=== PATIENT | female | born 1930 ===

== ENCOUNTER 2016-12-20 16:11 | Emergency (ER) | payer MEDICARE, MEDICAID ==
--- NOTE | 2016-12-20 17:04 | C.PDOC ---
History Of Present Illness 86 year old female was brought to the ED by EMS after falling just prior to arrival. Patient states she was attempting to push open a heavy door but was unable to and fell. Patient's current medications are unknown. She notes pain in her left hip, right knee, shoulder, and hand. Patient denies LOC, neck pain, dizziness, lightheadedness, or changes in sensation. - HPI Time Seen by Provider: 12/20/16 16:44 Chief Complaint (Nursing): Trauma History Per: Patient, EMS, Incident Response Lead History/Exam Limitations: no limitations Onset/Duration Of Symptoms: Mins Injury Occurred (Timing): Just Before Arrival Location Of Injury: Right: Arm, Hand, Knee, Left: Hip Recent travel outside of the [place] States: No Additional History Per: Family - Fall Fall:Prior To Injury: Other (unable to push heavy door and fell ) Past Medical History Reviewed: Historical Data, Nursing Documentation, Vital Signs Vital Signs: Last Vital Signs Temp 97.1 F L 12/20/16 19:16 Pulse 66 12/20/16 19:16 Resp 18 12/20/16 19:16 BP 120/78 12/20/16 19:16 Pulse Ox 97 12/20/16 20:55 Family History: States: Unknown Family Hx - Social History Hx Alcohol Use: No Hx Substance Use: No - Immunization History Hx Tetanus Toxoid Vaccination: No Hx Influenza Vaccination: No Hx Pneumococcal Vaccination: No Review Of Systems Constitutional: Negative for: Fever Eyes: Negative for: Vision Change Cardiovascular: Negative for: Chest Pain Respiratory: Negative for: Shortness of Breath Gastrointestinal: Negative for: Vomiting Musculoskeletal: Positive for: Shoulder Pain (right shoulder pain ), Hand Pain ( right hand pain ), Leg Pain (right knee pain), Other (left hip pain). Negative for: Neck Pain Neurological: Negative for: Weakness, Numbness, Dizziness Physical Exam - Physical Exam Appears: Non-toxic, No Acute Distress Skin: Warm, Dry Head: Tenderness (posterior scalp ), Swelling (posterior scalp ), Other ( ecchymosis and superficial abrasion to forehead ) Eye(s): bilateral: Normal Inspection, PERRL, EOMI Ear(s): Bilateral: Normal Nose: Normal Oral Mucosa: Moist Neck: Normal, Normal ROM, No Midline Cervical Tenderness, No Paracervical Tenderness, Supple Chest: Symmetrical, No Deformity Cardiovascular: Rhythm Regular Respiratory: Normal Breath Sounds, No Rales, No Rhonchi, No Wheezing Gastrointestinal/Abdominal: Normal Exam, Soft, No Tenderness Extremity: No Normal ROM, Tenderness (Tenderness of the right hand, right shoulder, right knee, and left hip and posterior buttock region ), No Calf Tenderness, Capillary Refill (good capillary refill, less than 2 seconds ), Swelling (swelling of the right hand, right shoulder, and right knee ), Other ( Ecchymosis of right hand. Superficial abrasion to right shoulder and right knee ) Pulses: Left Radial: Normal, Right Radial: Normal, Left Dorsalis Pedis: Normal, Right Dorsalis Pedis: Normal Neurological/Psych: Oriented x3, Normal Speech, Normal Cognition, Normal Cranial Nerves ED Course And Treatment O2 Sat by Pulse Oximetry: 97 (room air ) - Other Rad Right Shoulder X-ray X-Ray: Viewed By Me, Read By Radiologist Interpretation: COMPARISON: No prior. FINDINGS: BONES: Limited evaluation. Two views are provided in external rotation and no internal rotation view of the shoulder is provided. No evidence of fracture. JOINTS: Mild acromioclavicular degenerative arthritis. Glenohumeral articulation appears intact. SOFT TISSUES: Normal. OTHER FINDINGS: None. IMPRESSION: No acute fracture. Limited examination. Right knee X-ray X-Ray: Viewed By Me, Read By Radiologist Interpretation: COMPARISON: None. FINDINGS: BONES: Normal. No fracture. JOINTS: Mild tricompartmental osteoarthritis. JOINT EFFUSION: None. OTHER FINDINGS: None. IMPRESSION: No acute fracture. Mild tricompartmental osteoarthritis. Left hip X-ray X-Ray: Viewed By Me, Read By Radiologist Interpretation: COMPARISON: None. FINDINGS: BONES: No hip fracture identified. Bilateral mild osteoarthritis. There is discontinuity of the medial border of the right pubic symphysis raising suspicion of a symphyseal fracture. There is no other fracture identified involving the right pelvic ring. Please correlate clinically and consider further evaluation with computed tomography if warranted. There is no other pelvic fracture appreciated. JOINTS : Bilateral mild osteoarthritis of the hip. SOFT TISSUES: Normal. OTHER FINDINGS: None. IMPRESSION: No evidence of hip fracture. Questionable fracture right pubic symphysis, nondisplaced. Please correlate clinically and consider further evaluation with computed tomography if clinically warranted. Right Hand X-ray X-Ray: Viewed By Me, Read By Radiologist Interpretation: COMPARISON: None. FINDINGS: BONES: Normal. No fracture. JOINTS: Osteoarthritis at MCP 1. Osteoarthritis at DIP 2. Remaining joint spaces and articular surfaces are preserved. SOFT TISSUES: Normal. OTHER FINDINGS: None. IMPRESSION: No acute fracture. Osteoarthritis of 1st and 2nd digit as above. - CT Scan/US Head CT W/O contrast Other Rad Studies (CT/US): Read By Radiologist, Radiology Report Reviewed CT/US Interpretation: COMPARISON: None available. TECHNIQUE: Axial computed tomography images were obtained through the head/brain without intravenous contrast. Radiation dose: Total exam DLP = 886.86 mGy-cm. This CT exam was performed using one or more of the following dose reduction techniques: Automated exposure control, adjustment of the mA and/or kV according to patient size, and/or use of iterative reconstruction technique. FINDINGS: HEMORRHAGE: No intracranial hemorrhage. BRAIN: Diffuse atrophy with prominence of the ventricles and sulci noted. No mass effect or edema. Scattered periventricular and subcortical white matter hypodensities, which are nonspecific, but often seen with chronic microvascular ischemic disease. Please note that MRI with diffusion imaging is more sensitive in the detection of acute ischemic event. VENTRICLES: No hydrocephalus. CALVARIUM: Unremarkable. PARANASAL SINUSES: Unremarkable as visualized. No significant inflammatory changes. MASTOID AIR CELLS: Unremarkable as visualized. No inflammatory changes. OTHER FINDINGS: None. IMPRESSION: Generalized atrophy. Nonspecific white matter changes. Progress Note: X-rays and head CT were ordered. Patient was given Tylenol. Right hip X-ray reading was evaluated. Patient notes no tenderness in pubis region and denies tenderness on palpation. Pt states she has no pain and no complaints. Results were discussed with patient's son. Results were given and patient was instructed to follow up in 1-2 days. SOn notes pt is at baseline and has no complaints, feels comfortable taking her home. Case discussed with Dr Huff and XR resutls evaluated, agree dupon plan and discharge. Reassessment Condition: Improved Disposition - Disposition Disposition: HOME/ ROUTINE Disposition Time: 18:55 Condition: STABLE Additional Instructions: Vaya a tim mdico o la clnica en 1-3 humphries sin falta, para mas evaluacin. Volver a la lonnie de emergencia en cualquier momento si los sntomas persisten o empeoran. Instructions: Contusion in Adults (ED) Forms: [facility] (Welsh) Print Language: AMHARIC - Clinical Impression Clinical Impression: Knee contusion, Hand contusion, Head contusion, Contusion, hip - Scribe Statement The provider has reviewed the documentation as recorded by the Tracyibvahe Johnson All medical record entries made by the Tracyibvahe were at my direction and personally dictated by me. I have reviewed the chart and agree that the record accurately reflects my personal performance of the history, physical exam, medical decision making, and the department course for this patient. I have also personally directed, reviewed, and agree with the discharge instructions and disposition.
--- NOTE | 2016-12-20 18:21 | CT ---
PROCEDURE: CT HEAD WITHOUT CONTRAST. HISTORY: trauma COMPARISON: None available. TECHNIQUE: Axial computed tomography images were obtained through the head/brain without intravenous contrast. Radiation dose: Total exam DLP = 886.86 mGy-cm. This CT exam was performed using one or more of the following dose reduction techniques: Automated exposure control, adjustment of the mA and/or kV according to patient size, and/or use of iterative reconstruction technique. FINDINGS: HEMORRHAGE: No intracranial hemorrhage. BRAIN: Diffuse atrophy with prominence of the ventricles and sulci noted. No mass effect or edema. Scattered periventricular and subcortical white matter hypodensities, which are nonspecific, but often seen with chronic microvascular ischemic disease. Please note that MRI with diffusion imaging is more sensitive in the detection of acute ischemic event. VENTRICLES: No hydrocephalus. CALVARIUM: Unremarkable. PARANASAL SINUSES: Unremarkable as visualized. No significant inflammatory changes. MASTOID AIR CELLS: Unremarkable as visualized. No inflammatory changes. OTHER FINDINGS: None. IMPRESSION: Generalized atrophy. Nonspecific white matter changes.
[2016-12-20] MEDS ORDERED: Bacitracin 500 Units/gm Oint Foilpak UD ONE (18:27)
--- NOTE | 2016-12-20 18:55 | C.PDOC ---
Time Seen by Provider: 12/20/16 16:44 Chief Complaint (Nursing): Lower Extremity Problem/Injury Past Medical History Vital Signs: Last Vital Signs Temp 97 F L 12/20/16 16:18 Pulse 74 12/20/16 16:18 Resp 16 12/20/16 16:18 BP 119/67 12/20/16 16:18 Pulse Ox 97 12/20/16 16:18 - Social History Hx Alcohol Use: No Hx Substance Use: No - Immunization History Hx Tetanus Toxoid Vaccination: No Hx Influenza Vaccination: No Hx Pneumococcal Vaccination: No ED Course And Treatment O2 Sat by Pulse Oximetry: 97 Disposition - Disposition Disposition: HOME/ ROUTINE Disposition Time: 18:55 Condition: STABLE Additional Instructions: Vaya a tim mdico o la clnica en 1-3 humphries sin falta, para mas evaluacin. Volver a la lonnie de emergencia en cualquier momento si los sntomas persisten o empeoran. Instructions: Contusion in Adults (ED) Forms: [facility] ([place]) Print Language: WELSH
--- NOTE | 2016-12-20 18:57 | RAD ---
PROCEDURE: Left Hip X-ray Radiographs. HISTORY: trauma COMPARISON: None. FINDINGS: BONES: No hip fracture identified. Bilateral mild osteoarthritis. There is discontinuity of the medial border of the right pubic symphysis raising suspicion of a symphyseal fracture. There is no other fracture identified involving the right pelvic ring. Please correlate clinically and consider further evaluation with computed tomography if warranted. There is no other pelvic fracture appreciated. JOINTS: Bilateral mild osteoarthritis of the hip SOFT TISSUES: Normal. OTHER FINDINGS: None. IMPRESSION: No evidence of hip fracture. Questionable fracture right pubic symphysis, nondisplaced. Please correlate clinically and consider further evaluation with computed tomography if clinically warranted.
--- NOTE | 2016-12-20 18:59 | RAD ---
PROCEDURE: Right Knee Radiographs. HISTORY: trauma COMPARISON: None. FINDINGS: BONES: Normal. No fracture. JOINTS: Mild tricompartmental osteoarthritis. JOINT EFFUSION: None. OTHER FINDINGS: None. IMPRESSION: No acute fracture. Mild tricompartmental osteoarthritis.
--- NOTE | 2016-12-20 18:59 | RAD ---
PROCEDURE: Right Hand Radiographs. HISTORY: trauma COMPARISON: None. FINDINGS: BONES: Normal. No fracture. JOINTS: Osteoarthritis at MCP 1. Osteoarthritis at DIP 2. Remaining joint spaces and articular surfaces are preserved. SOFT TISSUES: Normal. OTHER FINDINGS: None. IMPRESSION: No acute fracture. Osteoarthritis of 1st and 2nd digit as above.
--- NOTE | 2016-12-20 19:00 | RAD ---
PROCEDURE: Radiographs of the Right Shoulder HISTORY: trauma COMPARISON: No prior. FINDINGS: BONES: Limited evaluation. Two views are provided in external rotation and no internal rotation view of the shoulder is provided. No evidence of fracture. JOINTS: Mild acromioclavicular degenerative arthritis. Glenohumeral articulation appears intact. SOFT TISSUES: Normal. OTHER FINDINGS: None. IMPRESSION: No acute fracture. Limited examination.
[2016-12-20 19:12] VITALS: RESP 18
[2016-12-20 19:17] VITALS: BP 120/78; PULSE 66; TEMP 97.1
[2016-12-20 20:50] VITALS: O2SAT 97
== END 2016-12-20 19:20 | disposition home or self-care (01) ==
LOC: C.ER 16:11
DX: S70.02XA Contusion of left hip, initial encounter (principal); S80.01XA Contusion of right knee, initial encounter; S60.221A Contusion of right hand, initial encounter; S00.83XA Contusion of other part of head, initial encounter; W19.XXXA Unspecified fall, initial encounter